=== PATIENT | female | born 1965 | race Caucasian/White ===

== ENCOUNTER 2019-05-11 11:09 | Emergency (ER) | payer OTHER ==
[~2019-05-11] VITALS: Ht 162.6 cm; Wt 60.8 kg
[~2019-05-11 11:09] MED LIST: AMLO10TA4 PO; ATOR20TA PO; GABA300C PO; GLIP5TAB22 PO; HYDR-3653 PO; HYDROCHLOROTH12.5 MG PO; INSU100V8 SQ; LISI-170 PO; MELO7.5T31 PO; METF10002 PO; METO10TA82 PO; OMEP-110 PO; PHEN100C PO; PROP20TA PO
[2019-05-11 11:55] VITALS: BP 126/82
--- NOTE | 2019-05-11 12:31 | NUR ---
ASSUMED CARE OF PT AT THIS TIME.
[2019-05-11] MEDS ORDERED: FLUCONAZOLE 100 MG TABLET ONE ×2 (12:42→12:47)
[2019-05-11] MEDS ORDERED: FLUCONAZOLE 100 MG TABLET PO ONE (13:00)
== END 2019-05-11 13:26 | disposition home or self-care (01) ==
LOC: ED 13:20
DX: K08.89 Other specified disorders of teeth and supporting structures (principal); B37.3 Candidiasis of vulva and vagina
CPT/HCPCS: 99283

== ENCOUNTER 2019-08-02 13:08 | Emergency (ER) | payer MEDICARE ==
[~2019-08-02] VITALS: Ht 165.1 cm; Wt 63.3 kg
--- NOTE | 2019-08-02 13:53 | NUR ---
Pt here for morphine withdrawal, pt reports she has been without medications for 2 weeks. Per patient she take 30mg of morphine BID and 10mg norco as needed for her chronic pain and fibromyalgia. Pt denies any new injuries but is unable to tolerate the pain anymore. Pt has no other medical complaints. Pt appears tremulous and reports nausea. However pt ambulates safely and has no pesrpiration. Pt is able to extend arms and hold still. Minimal s/sx of withdrawal. Pt has had no episode of emesis yet.
[2019-08-02] MEDS ORDERED: LORazepam 2 MG/ML, 1ML IM PRN (14:00)
[2019-08-02] MEDS ORDERED: LORazepam 2 MG/ML, 1ML ONE (14:05)
[2019-08-02 14:19] LABS: BASOPHILS # (AUTO) 0.01 x10^3/uL (0-0.1); BASOPHILS % (AUTO) 0 % (0-1); EOSINOPHILS # (AUTO) 0.04 x10^3/uL (0-0.4); EOSINOPHILS % (AUTO) 1 % (1-7); LYMPHOCYTES # (AUTO) 1.68 x10^3/uL (1-3.4); LYMPHOCYTES % (AUTO) 26 % (22-44); MD NO; MEAN CORPUSCULAR HEMOGLOBIN 29.2 pg (27.0-34.8); MEAN CORPUSCULAR HGB CONC 32.6 g/dL (32.4-35.8); MEAN CORPUSCULAR VOLUME 89.8 fL (80-100); MEAN PLATELET VOLUME 7.8 fL (7.4-10.4); MONOCYTES # (AUTO) 0.39 x10^3/uL (0.2-0.8); MONOCYTES % (AUTO) 6 % (2-9); NEUTROPHILS # (AUTO) 4.29 x10^3/uL (1.8-6.8); NEUTROPHILS % (AUTO) 67 % (42-75); PLATELET COUNT 284 x10^3/uL (130-400); RED BLOOD COUNT 4.46 x10^6/uL (3.82-5.3); RED CELL DISTRIBUTION WIDTH 14.4 % (9.6-15.2)
[2019-08-02 14:26] LABS: ALANINE AMINOTRANSFERASE 19 U/L (12-78); ALBUMIN 3.4 g/dL (3.4-5.0); ANION GAP 8 mmol/L (5-15); CALCIUM 9.3 mg/dL (8.5-10.1); CHLORIDE 110 mmol/L (98-107)
[2019-08-02 14:29] LABS: ALKALINE PHOSPHATASE 84 U/L (45-117); BILIRUBIN,TOTAL 0.3 mg/dL (0.2-1.0); CREATININE 0.77 mg/dL (0.55-1.02); TOTAL PROTEIN 6.9 g/dL (6.4-8.2)
--- NOTE | 2019-08-02 14:32 | NUR ---
Pt resting in room.
[2019-08-02 14:59] LABS: MICROSCOPIC INDICATED
[2019-08-02 15:00] LABS: CULTURE INDICATED? YES
[2019-08-02] MEDS ORDERED: SODIUM CHLORIDE 0.9% 1,000ML IVBOLUS ONE (16:00)
--- NOTE | 2019-08-02 16:10 | NUR ---
Pt medicated per emar.
--- NOTE | 2019-08-02 17:04 | NUR ---
Patient/Caregiver given discharge instructions and they have confirmed that they understand the instructions. Patient ambulatory with steady gait.
[2019-08-02 17:05] VITALS: BP 150/86
== END 2019-08-02 18:07 | disposition home or self-care (01) ==
LOC: ED 13:28
DX: F11.23 Opioid dependence with withdrawal (principal); R52 Pain, unspecified; E11.9 Type 2 diabetes mellitus without complications; I10 Essential (primary) hypertension
CPT/HCPCS: 36415; 80053; 81001; 83605; 85025; 87086; 93005; 96374; 99284; J2060; J7030